=== PATIENT | female | born 1960 | race Caucasian/White ===

== ENCOUNTER → 2017-11-10 | Outpatient (CLI) | payer OTHER ==
[~2017-11-10] MED LIST: ADV250/50 INH; ALBU8.5H12 IH; CITA-156 PO; CODE118S5 PO; FLU20 PO; IBU800 PO; METR250 PO; OMEP-153 PO; PEP PO; PER PO; PRED-1 PO; PRED20TA6 PO; RAN150 PO; TETR-30 PO; [UNRECOGNIZED DRUG - CODE] PO
--- NOTE | 2017-11-10 10:56 | RADIOLOGY IMAGING REPORT ---
FACILITY: [facility] PATIENT NAME: Cony Pierre : 1960 MR: [id number] V: [id number] EXAM DATE: ORDERING PHYSICIAN: KENDRA CARBONE TECHNOLOGIST: Location: [facility] Patient: Cony Pierre : 1960 Visit/Account:[id number] Date of Sevice: 11/10/2017 CHEST PA AND LAT History: Positive TB test FINDINGS: Comparison studies: Comparison study 12/28/2014 Tubes and Lines: None. Lungs and pleura: Interval development of interstitial opacities in the right middle lobe well-visu alized both projections. No pleural effusions seen. Left lung well aerated. There is no evidence o f hilar retraction or scarring in the upper lobes. No definite radiographic findings more specific a nd concerning for tuberculosis Mediastinum: normal. Cardiac silhouette: normal . Osseous structures: Unremarkable for age . IMPRESSION: New right middle lobe infiltrate. Atelectasis versus pneumonia. Report Dictated By: Benny Hancock MD at 11/10/2017 10:49 AM Report E-Signed By: Benny Hancock MD at 11/10/2017 10:52 AM WSN:[id number]
== END ==
LOC: RAD 09:00 → EDSTATUS 13:33
PROVIDERS: ATTEND Nurse Practitioner
DX: R91.8 Other nonspecific abnormal finding of lung field (principal)
CPT/HCPCS: 71046

== ENCOUNTER → 2017-11-17 | Outpatient (REF) | payer OTHER ==
--- NOTE | 2017-11-17 13:53 | RADIOLOGY IMAGING REPORT ---
FACILITY: [facility] [place] PATIENT NAME: Cony Pierre : 1960 MR: [id number] V: [id number] EXAM DATE: ORDERING PHYSICIAN: KENDRA CARBONE TECHNOLOGIST: [place] [facility] [place] [place] Cony [place] : 1960 Visit/Account:[id number] Date of Sevice: 11/17/2017 CHEST W/O CONTRAST History: Abnormal chest x-ray TECHNIQUE: Contiguous axial images were performed through the chest to the level of the adrenal gla nds. No IV contrast was administered. Coronal and sagittal reformatting was also performed. COMPARISON STUDIES: PA and lateral chest November 10, 2017. Lungs / Pleura: There is coarse linear stranding in the right middle lobe and thickening of the inf erior aspect of the both major fissures. There Is additional septal thickening also noted along the inferolateral right middle lobe. There Is a noncalcified pulmonary nodule along the inferior lateral aspect of the right lower lobe me asuring 1 x 1 x 0.5 cm best seen on image 82 of series 3 and sagittal image 18. The lateral aspect inferior left lower lobe there is a 1 x 0.8 x 0.7 cm noncalcified nodule best seen on image 75 series 3 and sagittal image 103. there is mild to moderate central peribronchial thickening bilaterally Mediastinum/nodes: Mediastinal structures not ideally evaluated due to lack of intravenous contrast there are subcentimeter pretracheal and AP window lymph nodes Heart and vessels: There is a small pericardial effusion. Mild calcination occasions are noted in t he coronary arteries. Musculoskeletal / Body wall: There are mild spondylotic changes of the thoracic spine Upper abdomen: There is a 1.2 x 1.1 x 0.8 cm lymph node adjacent to the GE junction IMPRESSION: There are two noncalcified pulmonary nodules one in each lower lobe one measuring 1 x 1 x 0.5 cm and one measuring 1 x 0.8 x 0.7 cm. Fleischner Society recommendations are as follows For nodules this s ize in a low-risk patient (minimal or absent smoking history, no history of malignancy), a 3-6 month follow-up CT is recommended, then consider CT at 18-24 months. In a high risk patient, (smoking or ma lignancy history), a CT at 3-6 months then at 18-24 months is recommended. There is mild to moderate central peribronchial thickening Coarse linear stranding in the right middle lobe may represent scarring versus atelectasis. There is additional septal thickening along the inferolateral right middle lobe which again could be chronic versus an acute infectious/inflammatory process Thickening of the major fissures inferiorly bilaterally Subcentimeter pretracheal and AP window lymph nodes Small pericardial effusion 1.2 x 1.1 x 0.8 cm lymph node adjacent to the GE junction Report Dictated By: Thalia Myers MD at 11/17/2017 1:39 PM Report E-Signed By: Thalia Myers MD at 11/17/2017 1:50 PM WSN:[email or web address]
== END ==
LOC: CT 11-15 13:41
PROVIDERS: ATTEND Nurse Practitioner
DX: R91.1 Solitary pulmonary nodule (principal); R93.8 Abnormal findings on diagnostic imaging of other specified body structures; I31.3 Pericardial effusion (noninflammatory)
CPT/HCPCS: 71250

== ENCOUNTER 2017-12-31 14:19 | Outpatient (RCR) | payer SELFPAY ==
[~2017-12-31] VITALS: Ht 163.8 cm; Wt 78.1 kg
[2017-12-31 14:37] VITALS: BP 118/77
[2017-12-31] MEDS ORDERED: TIO18R INH (14:42)
[2017-12-31] MEDS ORDERED: PARO-243 PO (14:42)
[2017-12-31] MEDS ORDERED: OMEP-137 PO (14:42)
--- NOTE | 2017-12-31 18:45 | ONCOLOGY CONSULTATION ---
EVENT DATE: December 31, 2017 REFERRING PHYSICIAN KEVIN Stephenson REASON FOR CONSULTATION Evaluation and management of growing pulmonary nodules. HISTORY OF PRESENT ILLNESS Patient is a 57-year-old female with past medical history of COPD, and the patient was found to have pulmonary nodules four years ago. She has been seen by her primary care provider, Marta Maurice, who requested a CT scan of the chest done on November 17, 2017, which showed slightly growing pulmonary nodules, one in each lower lobe of the lung. The one on the right lower lobe laterally was 8 x 5 mm four years ago, and currently 1.1 x 0.5 cm. The other one in the lateral aspect of the left lower lobe was 8.5 mm and currently 1 x 0.8 x 0.7 cm. Patient was referred for further evaluation and management. PAST MEDICAL HISTORY 1. Positive PPD with negative chest x-ray. 2. GERD. 3. COPD. 4. Asthma. 5. Pre-diabetic. 6. Hepatitis C positive. 7. Osteoporosis. 8. Skin cancer. PAST SURGICAL HISTORY 1. Right foot surgery. 2. Tubal ligation. 3. Resection of skin cancer. SOCIAL HISTORY Patient is with two children. She works for [employer]. She quit smoking seven years ago after one to one and a half packs a day for 25 years. She has two to three drinks per month. Her last time to use street drugs was in 2000. FAMILY HISTORY Two maternal aunts had breast cancer. CURRENT MEDICATIONS 1. Advair 50/250 two times daily. 2. Albuterol one spray as needed. 3. Spiriva one pill a day. 4. Tramadol 50 mg twice daily. 5. Paxil 20 mg once daily. 6. Hydroxyzine 50 mg two times daily. 7. Omeprazole 20 mg as needed. 8. Trazodone 50 mg as needed. ALLERGIES No known drug allergies. REVIEW OF SYSTEMS CONSTITUTIONAL: No appetite or weight change. No fever, chills or sweating. No recent infection. HEENT: Ears: No tinnitus or hearing problem. Nose: No nasal discharge or epistaxis. Throat: No sore throat or mouth ulcers. Eyes: No diplopia or visual changes. RESPIRATORY: Patient has cough with expectoration, shortness of breath and wheezing from her COPD. No hemoptysis. CARDIOVASCULAR: No chest pain, orthopnea, or paroxysmal nocturnal dyspnea (PND) . No edema. No palpitations. GASTROINTESTINAL: She has occasional nausea. No vomiting. No diarrhea or constipation. No change in bowel movements. No heartburn or swallowing difficulties. No abdominal pain. No jaundice. No hematemesis, melena or rectal bleeding. GENITOURINARY: No hematuria or dysuria. She had rectal bleeding which resolved because of her bleeding hemorrhoids. MUSCULOSKELETAL: No pain in the muscles, joints or bones. NEUROLOGICAL: She has tingling and numbness in the hands. No headaches or convulsions. HEMATOLOGIC/LYMPHATIC: No bleeding or easy bruising. She is weak, tired and fatigued. No enlarged lymph nodes. SKIN: No skin rash or lumps. PSYCHIATRIC: No anxiety or depression. PHYSICAL EXAMINATION GENERAL: Looks stable. Well-developed, well-nourished, and in no acute distress. VITAL SIGNS: Blood pressure 118/77, pulse 61 per minute, respirations 16 per minute, temperature 98, pulse ox 92% on room air. HEENT: Head: Atraumatic. No sinus tenderness to palpation. Eyes: No icterus or conjunctivitis. Mouth and Throat: No oral thrush or mucositis. NECK: Supple. No cervical or supraclavicular lymphadenopathy. LUNGS: Clear to auscultation and percussion bilaterally. HEART: Regular rate and rhythm. No gallops, murmurs, clicks or rubs. ABDOMEN: Soft and lax. No tenderness. No hepatosplenomegaly. No masses. EXTREMITIES: No cyanosis, clubbing or edema. LYMPHATICS: No peripheral lymphadenopathy. NEUROLOGICAL: Conscious, alert and oriented times three. No focal motor or sensory deficits. PSYCHIATRIC: Mood and affect appear normal. SKIN: No skin rash, bruise or purpuric eruption. ASSESSMENT 1. Multiple pulmonary nodules, one on each lung in the lower lobe. Over four years there was an increase in the size by only 0.2 cm. Patient was offered today PET/CT scan and then to decide about biopsy if it comes back positive for those nodules, or repeat CT scan of the chest in four months, or proceed with biopsy of one of those nodules. But patient decided to just wait for another four months and get another PET scan at that time. I am planning to see her in four months with CBC, chem panel and I will repeat her CT chest with intravenous contrast at that time. If the size of those nodules continues to grow then I will proceed with CT-guided biopsy of the nodule which is growing. If the size remains the same then we will continue to monitor. Patient also does not have insurance to recommend a PET scan right now. 2. Chronic obstructive pulmonary disease. 3. History of hepatitis C status post treatment. 4. History of skin cancer status post resection. 5. History of positive PPD with negative chest x-ray. PLAN 1. Continue followup. 2. Patient to return in four months with CT chest with intravenous contrast. 3. Patient to contact us for any new concerns or complaints. MIKED
== END 2018-02-02 13:49 | disposition home or self-care (01) ==
LOC: ONC 14:19
PROVIDERS: ATTEND Internal Medicine Hematology
DX: R91.8 Other nonspecific abnormal finding of lung field (principal); J44.9 Chronic obstructive pulmonary disease, unspecified; Z85.828 Personal history of other malignant neoplasm of skin; Z87.891 Personal history of nicotine dependence; R05 Cough; R53.1 Weakness; R53.83 Other fatigue
CPT/HCPCS: 99202

== ENCOUNTER → 2018-03-08 | Outpatient (REF) ==
[~2018-03-08] MED LIST changes: +DOCU-416 PO; +FLUT1DIS29 IH; +HYDR-4228 PO; +HYDR10TA3 PO; +LORA-629 PO; +OMEP-137 PO; +OXYC-854 PO; +PARO-243 PO; +TIO18R INH; +TRAM-420 PO; +TRAZ-156 PO
--- NOTE | 2018-03-10 10:12 | RADIOLOGY IMAGING REPORT ---
[place] [facility] [place] Cony Pierre : 1960 MR: [id number] V: [id number] EXAM DATE: ORDERING PHYSICIAN: BENSON MESSINA TECHNOLOGIST: Location: [facility] Patient: Cony Pierre : 1960 Visit/Account:[id number] Date of Sevice: 03/08/2018 EXTREMITY NON-VASCULAR RIGHT INDICATION: Red lump, right upper extremity, on Augmentin COMPARISON: None available FINDINGS: No mass or fluid collection identified in the area of interest. There is an ovoid echoge lela 1.8 x 1.6 cm region in the area of interest which may represent a benign lipoma or prominence of subcutaneous fat. Additionally there is a small patch of subcutaneous edema and less likely a fluid collection measuring 9 mm. IMPRESSION: 1. Benign 1.8 cm lipoma versus benign prominence of subcutaneous fat in the area of interest. 2. Additional ill-defined subcutaneous edema versus less likely an abscess in the area of interest m easures up to 9 mm. Short-term ultrasound follow-up may be warranted to ensure resolution of this fi nding given history. MR without and with contrast could be utilized for further characterization as needed if there is hig h concern for abscess in this area. Report Dictated By: Sanya Vera MD at 03/10/2018 9:50 AM Report E-Signed By: Sanya Vera MD at 03/10/2018 10:08 AM WSN:[email or web address]
== END ==
LOC: US 01:10 → EDSTATUS 08:02 → US 08:06 → EDSTATUS 08:06
PROVIDERS: ATTEND Nurse Practitioner
DX: L02.413 Cutaneous abscess of right upper limb (principal)
CPT/HCPCS: 76881

== ENCOUNTER 2018-03-10 01:17 | Day surgery (SDC) | payer SELFPAY ==
[~2018-03-10] VITALS: Ht 165.1 cm; Wt 75.7 kg
[~2018-03-10 01:17] MED LIST changes: -DOCU-416 PO; -OXYC-854 PO
[2018-03-10] MEDS ORDERED: ROPIVACAINE 0.5% 20 ML VIAL ONE (09:29)
[2018-03-10] MEDS ORDERED: fentaNYL CITR 100 MCG/2 ML AMP ONE ×3 (10:06→12:04)
[2018-03-10] MEDS ORDERED: LIDOCAINE 2% IV 100 MG/5ML SYR ONE (10:07)
[2018-03-10] MEDS ORDERED: PROPOFOL EMUL(*) 10MG/ML 20 ML 20 ML ONE (10:07)
[2018-03-10] MEDS ORDERED: FAMOTIDINE 20 MG/50 ML PREMIX IVPB ONE (10:15)
[2018-03-10] MEDS ORDERED: LIDOCAINE/SOD BICARB 8.4% SYR ID ONE ×2 (10:20→10:30)
[2018-03-10 10:22] VITALS: BP 123/76
[2018-03-10] MEDS ORDERED: AMPICILLIN/SULBACT (*) 3 GM VL 3 GM in NS(*) 0.9% 100 ML BAG 100 ML IVPB ONE (10:30)
[2018-03-10] MEDS ORDERED: NORMOSOL R SOLN(*) 1000 ML BAG 1,000 ML IV PRN (10:30)
[2018-03-10] MEDS ORDERED: MIDAZOLAM 2 MG/2 ML VIAL IVP PRN (10:30)
[2018-03-10] MEDS ORDERED: BACITRACIN OINT 15 GM TUBE TP ONE (11:26)
--- NOTE | 2018-03-10 11:27 | EKG ---
[place] [facility] [place] NAME: ANGIE CORTEZ : [id number] MR: [id number] V: [id number] EXAM DATE: ORDERING PHYSICIAN: CLAUDINE SOLOMON TECHNOLOGIST: APPLE Guadalupe Reason : PRE-OP Blood Pressure : / mmHG Vent. Rate : 064 BPM Atrial Rate : 064 BPM P-R Int : 144 ms QRS Dur : 078 ms QT Int : 440 ms P-R-T Axes : 040 026 042 degrees QTc Int : 453 ms Normal sinus rhythm Low voltage QRS No ST-T abnormalities When compared with ECG of 28-JAN-2016 09:14, No significant change was found Confirmed by TATIANNA SEYMOUR ([id number]) on 03/10/2018 4:45:39 PM Referred By: SIDDHARTH Confirmed By:TATIANNA SEYMOUR
[2018-03-10] MEDS ORDERED: DOCU-416 PO (11:44)
[2018-03-10] MEDS ORDERED: OXYC-854 PO (11:44)
--- NOTE | 2018-03-10 11:46 | Short(Outpt) Discharge Summary ---
Discharge Summary Reason for Hosp/Final Diag: (1) Nodule, subcutaneous Status: Chronic Hospital Course & Plan: Right antecubetal nodule removed without problems. Departure Discharge to: Home, Self Care Discharge Instructions Home Meds Active Scripts Docusate Sodium (COLACE) 100 Mg Capsule, 1 CAP PO BID, #30 CAP 0 Refills TAKE WITH A FULL GLASS OF WATER Prov:BENSON MESSINA MD 03/10/18 Oxycodone Hcl/Acet 5/325 Mg (ENDOCET 5-325 TABLET) 1 Each Tablet, 1 TAB PO Q4H Y for PAIN, #20 TAB 0 Refills Prov:BENSON MESSINA MD 03/10/18 Reported Medications Tramadol Hcl (TRAMADOL HCL) 50 Mg Tablet, 50 MG PO BID, TAB 03/08/18 Fluticasone/Salmeterol (ADVAIR 500-50 DISKUS) 1 Each Disk.w.dev, 1 EACH IH QDAY 03/08/18 Hydroxyzine Hcl (HYDROXYZINE HCL) 50 Mg Tablet, 50 MG PO PRN Y for ANXIETY 03/08/18 Trazodone Hcl (TRAZODONE HCL) 50 Mg Tablet, 50 MG PO QHS Y for prn 03/08/18 Loratadine (LORATADINE) 10 Mg Tablet, 10 MG PO QDAY 03/08/18 Omeprazole (OMEPRAZOLE) 20 Mg Tablet.dr, 20 MG PO PRN, TAB 12/31/17 Paroxetine Hcl (PAXIL) 20 Mg Tablet, 20 MG PO QDAY, TAB 12/31/17 Tiotropium [place] (SPIRIVA) 18 Mcg/Cap Inh, 18 MCG INH DAILY, INH 12/31/17 Ibuprofen (Motrin) 800 Mg Tab, PO PRN 03/31/12 Albuterol Sulfate (Albuterol Sulfate Hfa) 8.5 Gm Hfa.aer.ad, 8.5 GM IH, 0 Refills TAKE ONE TO TWO PUFFS FOUR TIMES DAILY NEEDED FOR SHORTNESS OF BREATH 08/13/11 Discontinued Reported Medications Hydroxyzine Hcl (HYDROXYZINE HCL) Unknown Strength Tablet, PO QDAY 03/08/18 Tramadol Hcl (ULTRAM ER (PT OWN)) 100 Mg Tabcr, PO DAILY PRN 03/31/12 Salmeterol Xinaf/Fluticasone (Advair 250/50 Diskus) 250 Mcg/50 Mcg Inh, 1 PUFF INH QDAY, 0 Refills 1 PUFF TWICE DAILY 08/13/11 Follow up Referrals: General Surgery - 03/28/18 @ Surgery, General with Benson Messina Md You have a follow up appointment scheduled with Dr. Messina on 03/28/18, at 2:45pm. Diet: Regular Activity: As Tolerated Special Instructions: You may remove the entire dressing on 03/12/18, then you can shower. After showering, leave the incision open to air. Don't immerse the incision for 2 weeks. BENSON MESSINA MD Mar 10, 2018 11:46
--- NOTE | 2018-03-10 11:55 | Post Operative Progress Note ---
Post Operative Progress Note Date: Mar 10, 2018 Time: 11:47 Surgeon: Edd Dictation number: [id number] Anesthesia: LMA by Dr. Salinas Pre-Op Diagnosis: Right antecubetal nodule Post-Op Diagnosis: REGGIE Findings: C/W dx Procedure(s): Excision of right antecubetal nodule Specimen Removed:(May be N/A): Right antecubetal nodule Complications: None Fluids: See anesthesia record Estimated Blood Loss: Minimal Date OP Note Dictated: Mar 10, 2018 Time OP Note Dictated: 11:48 BENSON MESSINA MD Mar 10, 2018 11:55
[2018-03-10 12:29] VITALS: BP 111/61
[2018-03-10] MEDS ORDERED: APAP/HYDROCODONE 325/5 TAB PO ONE (12:40)
[2018-03-10 12:48] VITALS: BP 116/79
[2018-03-10 12:55] VITALS: BP 110/65
[2018-03-10 12:58] VITALS: BP 114/79
[2018-03-10] MEDS ORDERED: DEXAMETHASONE SOD 4 MG/ML VIAL ONE (13:04)
[2018-03-10] MEDS ORDERED: ONDANSETRON 4 MG/2 ML VIAL ONE (13:05)
--- NOTE | 2018-03-10 14:36 | OPERATIVE REPORT 1 ---
EVENT DATE: March 10, 2018 SURGEON: Ruslan Puga M.D. ANESTHESIOLOGIST: Dr. Salinas ANESTHESIA: LMA PREOPERATIVE DIAGNOSIS: Right antecubital fossa subcutaneous nodule. POSTOPERATIVE DIAGNOSIS: Right antecubital fossa subcutaneous nodule. PROCEDURE PERFORMED: Excision of a right antecubital fossa nodule. ESTIMATED BLOOD LOSS: Minimal. COMPLICATIONS: None. CONDITION: Stable INDICATIONS: This is a 58 year old female who has a previous history of chronic meth use but had apparently been abstinent for about 7 years and then visited her daughter and apparently they used meth together but she admits that she probably missed the vein when she injected and ended up with a painful nodule. She would like to have the nodule removed. She reports being abstinent from meth at this time. DESCRIPTION OF PROCEDURE: The patient was brought to the operating room and placed upon the operating table. LMA anesthesia was administered and her right arm was prepped and draped in sterile fashion. A time out was completed and I marked the skin over the nodule. This was right on the antecubital fossa right in joint crease and so I made an S shaped incision over the joint crease including an ellipse around the nodule and anesthetized the skin in this area with 0.5% Ropivacaine plain. I made an incision right where I marked the skin and then dissected through the dermis and into the subcutaneous tissues. I dissected around the nodule and then passed it off the field. The wound remained hemostatic with electrocautery and irrigated and dried. I closed the incision with interrupted 3/0 Nylon sutures. The skin was cleaned, dried, and Bacitracin was applied to the incision followed by sterile 4x4 gauze and her arm was wrapped in a Coban. She was awakened, LMA removed. She was transported to the recovery room in stable condition having tolerated the procedure without any apparent problems. PAVAN
== END 2018-03-10 12:29 | disposition home or self-care (01) ==
LOC: OR 01:17
PROVIDERS: ATTEND Surgery
DX: R22.31 Localized swelling, mass and lump, right upper limb (principal); J44.9 Chronic obstructive pulmonary disease, unspecified
CPT/HCPCS: 24075; 36415; 88305; 93005; J0295; J2001; J2704; J2795; J3010; J3490; J7050; 82040; 82247; 82310; 82374; 82435; 82565; 82947; 84075; 84132; 84155; 84295; 84450; 84460; 84520; J1100; J2405

== ENCOUNTER → 2018-05-02 | Outpatient (REF) ==
[~2018-05-02] MED LIST changes: +DOCU-416 PO; +IOPAMIDOL 76% 75 ML INFUS BTL 75 ML ONE; +OXYC-854 PO; -TRAZ-156 PO; +TRAZ50TA34 PO
--- NOTE | 2018-05-02 13:13 | RADIOLOGY IMAGING REPORT ---
FACILITY: [facility] [place] PATIENT NAME: Cony Pierre : 1960 MR: [id number] V: [id number] EXAM DATE: ORDERING PHYSICIAN: KENDRA CARBONE TECHNOLOGIST: Location: [facility] [place] Patient: Cony Pierre : 1960 Visit/Account:[id number] Date of Sevice: 05/02/2018 CT chest with contrast HISTORY: Pulmonary nodules TECHNIQUE: CT chest with intravenous contrast. Contiguous helical images was performed from the lung apices to below the diaphragm. One of the following dose optimization techniques was utilized in the performance of this exam: Autom ated exposure control; adjustment of the mA and/or kV according to the patient's size; or use of an i terative reconstruction technique. Specific details can be referenced in the facility's radiology C T exam operational policy. CONTRAST: 75 cc of Isovue-370 COMPARISON: CT scan 11/20/2013 11/17/2017. FINDINGS: Heart/vessels: Trace pericardial effusion is unchanged. Mediastinum: There is a small hiatal hernia. Lymph nodes: Negative. Lungs/pleura: No significant interval change from prior examination. The consolidation and intersti tial prominence in the lingula and right middle lobe is stable. 7 x 5 mm right lower lobe pleural-based nodule (series 4, image 188) is unchanged dating back to 2013 . Pleural-based left lower lobe nodule (series 4, image 267) measures 7 x 5 mm, previously 10 x 6 mm. Right lower lobe pleural-based nodule (series 4, image 36) seen measures 8 x 4 mm, previously 8 x 5 m m. No new or enlarging nodules. There is bronchial thickening. Visualized upper abdomen: Negative. Bones/soft tissues: Mild degenerative changes are noted. IMPRESSION: 1. Stable small pulmonary nodules not significantly changed dating back to 2013. 2. Stable mild consolidation and interstitial thickening in the right middle lobe and left lingula c ould represent scarring or atelectasis. Report Dictated By: Isrrael Varma MD at 05/02/2018 12:54 PM Report E-Signed By: Isrrael Varma MD at 05/02/2018 1:08 PM WSN:[email or web address]
== END ==
LOC: CT 02:48
PROVIDERS: ATTEND Nurse Practitioner
DX: R91.1 Solitary pulmonary nodule (principal)
CPT/HCPCS: 71260; Q9967

== ENCOUNTER 2018-05-05 14:26 | Outpatient (RCR) | payer SELFPAY ==
[~2018-05-05 14:26] MED LIST changes: -IOPAMIDOL 76% 75 ML INFUS BTL 75 ML ONE
[2018-05-05 14:54] VITALS: BP 107/64
[2018-05-05] MEDS ORDERED: CETI-176 PO (15:01)
--- NOTE | 2018-05-05 16:39 | ONCOLOGY FOLLOW UP NOTE ---
EVENT DATE: May 05, 2018 DIAGNOSES 1. Multiple pulmonary nodules. 2. Chronic obstructive pulmonary disease. 3. History of hepatitis C status post treatment. 4. History of skin cancer status post resection. 5. History of positive PPD with negative chest x-ray. CHIEF COMPLAINT Patient is here today for followup of her pulmonary nodules. HEMATOLOGY/ONCOLOGY HISTORY Patient is a 57-year-old female with past medical history of COPD, and the patient was found to have pulmonary nodules four years ago. She has been seen by her primary care provider, Marta Maurice, who requested a CT scan of the chest done on November 17, 2017, which showed slightly growing pulmonary nodules, one in each lower lobe of the lung. The one on the right lower lobe laterally was 8 x 5 mm four years ago, and currently 1.1 x 0.5 cm. The other one in the lateral aspect of the left lower lobe was 8.5 mm and currently 1 x 0.8 x 0.7 cm. Patient was referred for further evaluation and management. HISTORY OF PRESENT ILLNESS Patient is here today for followup of her pulmonary nodules. She is complaining of cough with expectoration, shortness of breath and wheezing, but other than that she does not have any other complaints. PAST MEDICAL HISTORY 1. Positive PPD with negative chest x-ray. 2. GERD. 3. COPD. 4. Asthma. 5. Pre-diabetic. 6. Hepatitis C positive. 7. Osteoporosis. 8. Skin cancer. PAST SURGICAL HISTORY 1. Right foot surgery. 2. Tubal ligation. 3. Resection of skin cancer. SOCIAL HISTORY Patient is with two children. She works for [employer]. She quit smoking seven years ago after one to one and a half packs a day for 25 years. She has two to three drinks per month. Her last time to use street drugs was in 2000. FAMILY HISTORY Two maternal aunts had breast cancer. CURRENT MEDICATIONS 1. Advair 50/250 two times daily. 2. Albuterol one spray as needed. 3. Spiriva one pill a day. 4. Tramadol 50 mg twice daily. 5. Paxil 20 mg once daily. 6. Hydroxyzine 50 mg two times daily. 7. Omeprazole 20 mg as needed. 8. Trazodone 50 mg as needed. ALLERGIES No known drug allergies. REVIEW OF SYSTEMS CONSTITUTIONAL: No appetite or weight change. No fever, chills or sweating. No recent infection. HEENT: Ears: No tinnitus or hearing problem. Nose: No nasal discharge or epistaxis. Throat: No sore throat or mouth ulcers. Eyes: No diplopia or visual changes. RESPIRATORY: Patient has cough with expectoration, shortness of breath and wheezing. No hemoptysis. CARDIOVASCULAR: No chest pain, orthopnea, or paroxysmal nocturnal dyspnea (PND). No edema. No palpitations. GASTROINTESTINAL: She has occasional nausea. No vomiting. No diarrhea or constipation. No change in bowel movements. No heartburn or swallowing difficulties. No abdominal pain. No jaundice. No hematemesis, melena or rectal bleeding. GENITOURINARY: No hematuria or dysuria. She had rectal bleeding which resolved because of her bleeding hemorrhoids. MUSCULOSKELETAL: No pain in the muscles, joints or bones. NEUROLOGICAL: She has tingling and numbness in the hands. No headaches or convulsions. HEMATOLOGIC/LYMPHATIC: No bleeding or easy bruising. She is weak, tired and fatigued. No enlarged lymph nodes. SKIN: No skin rash or lumps. PSYCHIATRIC: No anxiety or depression. PHYSICAL EXAMINATION GENERAL: Looks stable. Well-developed, well-nourished, and in no acute distress. VITAL SIGNS: Blood pressure 107/64, pulse 72 per minute, respirations 17 per minute, temperature 97.2, pulse ox 90% on room air. HEENT: Head: Atraumatic. No sinus tenderness to palpation. Eyes: No icterus or conjunctivitis. Mouth and Throat: No oral thrush or mucositis. NECK: Supple. No cervical or supraclavicular lymphadenopathy. LUNGS: Clear to auscultation and percussion bilaterally. HEART: Regular rate and rhythm. No gallops, murmurs, clicks or rubs. ABDOMEN: Soft and lax. No tenderness. No hepatosplenomegaly. No masses. EXTREMITIES: No cyanosis, clubbing or edema. LYMPHATICS: No peripheral lymphadenopathy. NEUROLOGICAL: Conscious, alert and oriented times three. No focal motor or sensory deficits. PSYCHIATRIC: Mood and affect appear normal. SKIN: No skin rash, bruise or purpuric eruption. DIAGNOSTIC DATA CT chest done on May 02, 2018 showed stable small pulmonary nodules not significantly changed, dating back to 2013. CBC showed white count 5.1, hemoglobin 14.2, hematocrit 42.8, platelets 303,000. Chem panel totally normal except chloride 108. Other parameters are normal. ASSESSMENT 1. Multiple pulmonary nodules on each lung in the lower lobe. Over four years there was only an increase in the size by only 0.2 cm. Patient offered PET/CT scan or repeat CT scan of the chest, and the patient decided to wait for four months to check her CT chest again. Her current CT chest on May 02, 2018 showed stable pulmonary nodules since 2014. Given this information I am planning to refer the patient back to her primary care provider for followup, and I will be more than happy to see her in the future for any reason. I explained that to the patient. She is agreeable with the plan of management. 2. Chronic obstructive pulmonary disease. 3. History of hepatitis C status post treatment. 4. History of skin cancer status post resection. 5. History of positive PPD with negative chest x-ray. PLAN 1. Patient to continue followup with her primary care provider. . 2. Patient to return on p.r.n. basis. 3. Patient to contact us for any new concern or complaints. PAVAN
== END 2018-07-06 10:01 | disposition home or self-care (01) ==
LOC: ONC 14:26
PROVIDERS: ATTEND Internal Medicine Hematology
DX: R91.8 Other nonspecific abnormal finding of lung field (principal); J44.9 Chronic obstructive pulmonary disease, unspecified; Z85.828 Personal history of other malignant neoplasm of skin; Z87.891 Personal history of nicotine dependence; R05 Cough; R53.1 Weakness; R53.83 Other fatigue
CPT/HCPCS: 99212

== ENCOUNTER → 2018-06-15 | Outpatient (REF) ==
[~2018-06-15] MED LIST changes: +CETI-176 PO
--- NOTE | 2018-06-15 09:39 | RADIOLOGY IMAGING REPORT ---
FACILITY: [facility] - [place] PATIENT NAME: Cony Pierre : 1960 MR: [id number] V: [id number] EXAM DATE: ORDERING PHYSICIAN: KENDRA CARBONE TECHNOLOGIST: Location: Patient: Cony Pirere : 1960 Visit/Account:[id number] Date of Sevice: 06/15/2018 DEXA Scan Clinical history: Osteopenia. Comparison: DEXA scan from 2116. LUMBAR SPINE: The bone mineral density (BMD) measured from L1-L4 correlates with a Z-score of -1.3 and a T-score of -2.1 which is osteopenia as defined by the World Health Organization. The corresponding risk of fra cture in the lumbar spine is 4-6 times increased compared with a young adult reference population. T his value has decrease by 1.6 % since the prior study. More than 5% change is considered significant . HIP: Bone mineral density (BMD) measured in the LEFT total hip region correlates with a Z-score right is 1 .1 and a T-score of -1.7 which is osteopenia as defined by the World Health Organization. The corres ponding risk of fracture in the hip is 3-4 times increased compared to a young adult reference popula tion. This value has decreased by 6.8 % since the prior study. More than 5% change is considered sig nificant. T score left femoral neck -2.2 Bone mineral density (BMD) measured in the Femoral Neck region measures 0.738 g/cm?. IMPRESSION: 1. Lumbar spine: Osteopenia. There has been 1.6% decrease in the bone mineral density since the pre vious exam. 2. Left Total Hip: Osteopenia. There has been 6.8% decrease in the bone mineral density since the p revious exam. 3. Femoral Neck: Bone Mineral Density is 0.738 g/cm? The next DEXA scan of this patient should include the following sites: L1-L4 and the left hip. FRAX? WHO Fracture Risk Assessment Tool link: <http://www.shef.ac.uk/FRAX/tool.jsp?locationValue=9> PLEASE NOTE: 1) The World Health Organization defines low BMD as follows: T-score Normal > -1 Osteopenia < -1 and > -2.5 Osteoporosis < -2.5 without fractures Established osteoporosis < -2.5 with fractures 2) In general, you may wish to consider: Diagnosis Treatment Follow-up DEXA Normal BMD Prevention 2-3 years Osteopenia Prevention/therapy 1-2 years Osteoporosis Therapy Yearly 3) Fracture risk estimated from the T-score is more accurate for vertebral fractures (often spontane ous) than for hip fractures. Report Dictated By: Thalia Myers MD at 06/15/2018 9:33 AM Report E-Signed By: Thalia Myers MD at 06/15/2018 9:35 AM WSN:[email or web address]
== END ==
LOC: RAD 06-02 00:41
PROVIDERS: ATTEND Nurse Practitioner
DX: M85.80 Other specified disorders of bone density and structure, unspecified site (principal)
CPT/HCPCS: 77080

== ENCOUNTER → 2018-07-08 | Outpatient (REF) | LOC: RESP 07:17 → EDSTATUS 13:00 | PROVIDERS: ATTEND Nurse Practitioner | DX: J98.4 Other disorders of lung (principal) | CPT/HCPCS: 94060; 94726; 94729 ==

== ENCOUNTER 2018-09-22 09:59 | Inpatient (IN) | payer SELFPAY ==
[~2018-09-22] VITALS: Ht 162.6 cm; Wt 81.6 kg
[2018-09-22] MEDS ORDERED: ALBUTEROL/IPRATROPIUM 3 ML NEB NEB ONE (10:05)
[2018-09-22] MEDS ORDERED: methylPREDNIS SUCC 125 MG/2ML IVP ONE (10:10)
--- NOTE | 2018-09-22 10:41 | EKG ---
FACILITY: [facility] - [place] PATIENT NAME: ANGIE CORTEZ : [id number] MR: [id number] V: [id number] EXAM DATE: ORDERING PHYSICIAN: ALVIN LAST TECHNOLOGIST: Test Reason : SOB Blood Pressure : / mmHG Vent. Rate : 100 BPM Atrial Rate : 100 BPM P-R Int : 146 ms QRS Dur : 076 ms QT Int : 382 ms P-R-T Axes : 066 072 069 degrees QTc Int : 492 ms Sinus rhythm Nonspecific ST abnormality Prolonged QT Abnormal ECG Poor baseline - repeat if needed Confirmed by LUZ VILLALOBOS ([id number]) on 09/22/2018 4:36:11 PM Referred By: Confirmed By:LUZ VILLALOBOS
[2018-09-22] MEDS ORDERED: IPRATROPIUM 0.5MG/2.5ML NEB NEB ONE (10:50)
[2018-09-22] MEDS ORDERED: ALBUTEROL 2.5 MG/0.5ML ER ONLY NEB ONE (10:50)
[2018-09-22 10:53] LABS: PLATELET COUNT, AUTOMATED 279 K/uL (150-450)
--- NOTE | 2018-09-22 11:02 | ER Report ---
History and Physical Time Seen By MD: 10:30 Hx. of Stated Complaint: PT HAS BEEN SHORT OF BREATH FOR A WEEK SINCE GETTING SICK. HPI/ROS CHIEF COMPLAINT: Severe shortness of breath. HISTORY OF PRESENT ILLNESS: Patient is a 58-year-old female with known history of COPD and asthma presents to the emergency department for evaluation of severe shortness of breath that is progressively worsened over the last week. The patie nt states that she's been using her rescue inhaler every few hours she also states that she does have a nebulizer machine at home but lacks the medication. Patient reported upper respiratory symptoms and some cough progressing over the week. Patient is a former smoker quitting 7 years ago. Review the electronic medical record she was also seen in consultation with oncology for some enlarging pulmonary nodules which were followed by imaging she was discharged from oncology service after the nodules seemed to stabilize in size and concerns for malignancy were ruled out. REVIEW OF SYSTEMS: Constitutional: No fever, no chills. Eyes: No discharge. ENT: No sore throat. Cardiovascular: No chest pain, no palpitations. Respiratory: Shortness of breath, dry cough Gastrointestinal: No abdominal pain, no vomiting. Genitourinary: No hematuria. Musculoskeletal: No back pain. Skin: No rashes. Neurological: No headache. Allergies: Coded Allergies: No Known Drug Allergies (Verified , 04/10/14) Home Meds Reported Medications Cetirizine Hcl (ZYRTEC) 10 Mg Tablet, 10 MG PO QDAY, TAB 05/05/18 Tramadol Hcl (TRAMADOL HCL) 50 Mg Tablet, 50 MG PO BID, TAB 03/08/18 Fluticasone/Salmeterol (ADVAIR 500-50 DISKUS) 1 Each Disk.w.dev, 1 EACH IH QDAY 03/08/18 Hydroxyzine Hcl (HYDROXYZINE HCL) 50 Mg Tablet, 50 MG PO PRN PRN for ANXIETY 03/08/18 Trazodone Hcl (TRAZODONE HCL) 50 Mg Tablet, 50 MG PO QHS PRN for prn 03/08/18 Omeprazole (OMEPRAZOLE) 20 Mg Tablet.dr, 20 MG PO PRN, TAB 12/31/17 Paroxetine Hcl (PAXIL) 20 Mg Tablet, 20 MG PO QDAY, TAB 12/31/17 Albuterol Sulfate (Albuterol Sulfate Hfa) 8.5 Gm Hfa.aer.ad, 8.5 GM IH, 0 Refills TAKE ONE TO TWO PUFFS FOUR TIMES DAILY NEEDED FOR SHORTNESS OF BREATH 08/13/11 Past Medical/Surgical History Past medical history for positive PPD with negative chest x-ray, gastric esophageal reflux disease, COPD, asthma, hepatitis C positive, osteoporosis, resection of skin cancer, tubal ligation, right foot surgery. Hx Smoking: No (quit 2010, smoked 30 yrs, 1 pack every few days ) Smoking Status: Former Smoker Hx Substance Use Disorder: No (IV METH UNTIL 2007) Hx Alcohol Use: Yes (RARE) Constitutional Vital Sign - Last 24 Hours 09/22/18 09/22/18 09/22/18 09/22/18 10:00 10:07 10:07 10:15 Temp 98.3 Pulse 95 94 102 Resp 26 20 20 Pulse Ox 94 95 O2 Delivery Nasal Cannula Oxy Mask O2 Flow Rate 6.0 09/22/18 09/22/18 09/22/18 11:07 11:07 11:52 Pulse 90 104 Resp 20 20 Pulse Ox 97 O2 Delivery Oxy Mask O2 Flow Rate 6.0 Physical Exam General/Constitutional: Patient is awake, alert, severe respiratory distress and increased work of breathing. Patient is requiring oxygen ; patient only able to talk in 2-3 word sentences. Head: Normocephalic and atraumatic. Eyes: Conjunctival clear, Pupils are equal and reactive to light. Extraocular muscles are intact and symmetrical. Sclera are clear and anicteric. Ears:External canals are clear. Tympanic membranes are clear with normal landmarks and light reflex. Nares: No rhinorrhea or bleeding. Turbinates are pink and moist. Oropharyngeal: Mucous membranes are moist. There is no pharyngeal erythema or exudate. There are no palatal petechiae. Uvula is midline and symmetrical. Neck: Supple, no adenopathy. Cardiovascular: Heart is regular rate and rhythm without audible murmurs, rubs or gallops. Pulmonary: Lungs Have decreased breath sounds bilaterally with is severely prolonged expiratory phase and wheezes. She is using accessory muscles of respiration. Abdomen: Soft, nontender, no guarding or peritoneal signs. Extremities: No gross deformities, No peripheral cyanosis. Able to move all 4 extremities. Neuro: Alert and oriented X3, Skin: No rashes, skin is warm dry and well perfused. Medical Decision Making Data Points Result Diagram: 09/22/18 1030 09/22/18 1109 Laboratory Hematology Test 09/22/18 10:30 09/22/18 11:00 09/22/18 11:09 Red Blood Count 5.41 M/uL (4.17-5.56) Mean Corpuscular Volume 85.0 fL (80.0-96.0) Mean Corpuscular Hemoglobin 29.2 pg (26.0-33.0) Mean Corpuscular Hemoglobin Concent 34.4 g/dL (32.0-36.0) Red Cell Distribution Width 13.9 % (11.5-14.5) Mean Platelet Volume 8.9 fL (7.2-11.1) Neutrophils (%) (Auto) 74.8 % (39.4-72.5) Lymphocytes (%) (Auto) 15.0 % (17.6-49.6) Monocytes (%) (Auto) 6.5 % (4.1-12.4) Eosinophils (%) (Auto) 2.6 % (0.4-6.7) Basophils (%) (Auto) 1.1 % (0.3-1.4) Nucleated RBC Relative Count (auto) 0.0 /100WBC Neutrophils # (Auto) 7.6 K/uL (2.0-7.4) Lymphocytes # (Auto) 1.5 K/uL (1.3-3.6) Monocytes # (Auto) 0.7 K/uL (0.3-1.0) Eosinophils # (Auto) 0.3 K/uL (0.0-0.5) Basophils # (Auto) 0.1 K/uL (0.0-0.1) Nucleated RBC Absolute Count (auto) 0.00 K/uL Influenza Virus Type A (PCR) Negative (NEGATIVE) Influenza Virus Type B (PCR) Negative (NEGATIVE) Sodium Level 143 mmol/L (137-145) Potassium Level 4.2 mmol/L (3.5-5.0) Chloride Level 110 mmol/L (98-107) Carbon Dioxide Level 22 mmol/L (22-31) Blood Urea Nitrogen 13 mg/dl (7-18) Creatinine 1.30 mg/dl (0.52-1.04) Glomerular Filtration Rate Calc 41.9 Random Glucose 119 mg/dl (75-110) Calcium Level 9.1 mg/dl (8.4-10.2) Total Bilirubin 0.6 mg/dl (0.2-1.3) Aspartate Amino Transf (AST/SGOT) 34 U/L (0-35) Alanine Aminotransferase (ALT/SGPT) 39 U/L (0-56) Alkaline Phosphatase 75 U/L (0-126) Total Protein 7.7 g/dl (6.3-8.2) Albumin 4.3 g/dl (3.5-5.0) Chemistry Test 09/22/18 10:30 09/22/18 11:00 09/22/18 11:09 White Blood Count 10.2 k/uL (4.5-11.0) Red Blood Count 5.41 M/uL (4.17-5.56) Hemoglobin 15.8 g/dL (12.0-16.0) Hematocrit 46.0 % (34.0-47.0) Mean Corpuscular Volume 85.0 fL (80.0-96.0) Mean Corpuscular Hemoglobin 29.2 pg (26.0-33.0) Mean Corpuscular Hemoglobin Concent 34.4 g/dL (32.0-36.0) Red Cell Distribution Width 13.9 % (11.5-14.5) Platelet Count 279 K/uL (150-450) Mean Platelet Volume 8.9 fL (7.2-11.1) Neutrophils (%) (Auto) 74.8 % (39.4-72.5) Lymphocytes (%) (Auto) 15.0 % (17.6-49.6) Monocytes (%) (Auto) 6.5 % (4.1-12.4) Eosinophils (%) (Auto) 2.6 % (0.4-6.7) Basophils (%) (Auto) 1.1 % (0.3-1.4) Nucleated RBC Relative Count (auto) 0.0 /100WBC Neutrophils # (Auto) 7.6 K/uL (2.0-7.4) Lymphocytes # (Auto) 1.5 K/uL (1.3-3.6) Monocytes # (Auto) 0.7 K/uL (0.3-1.0) Eosinophils # (Auto) 0.3 K/uL (0.0-0.5) Basophils # (Auto) 0.1 K/uL (0.0-0.1) Nucleated RBC Absolute Count (auto) 0.00 K/uL Influenza Virus Type A (PCR) Negative (NEGATIVE) Influenza Virus Type B (PCR) Negative (NEGATIVE) Glomerular Filtration Rate Calc 41.9 Calcium Level 9.1 mg/dl (8.4-10.2) Total Bilirubin 0.6 mg/dl (0.2-1.3) Aspartate Amino Transf (AST/SGOT) 34 U/L (0-35) Alanine Aminotransferase (ALT/SGPT) 39 U/L (0-56) Alkaline Phosphatase 75 U/L (0-126) Total Protein 7.7 g/dl (6.3-8.2) Albumin 4.3 g/dl (3.5-5.0) EKG/Imaging EKG Interpretation EKG shows sinus rhythm with a nonspecific ST segment abdomen malady with a ventricular rate of approximately 100 bpm. Imaging FACILITY: [facility] PATIENT NAME: Cony Pierre : 1960 MR: [id number] V: [id number] EXAM DATE: ORDERING PHYSICIAN: ALVIN LAST TECHNOLOGIST: Location: [facility] [place] Patient: Cony Pierre : 1960 Visit/Account:[id number] Date of Sevice: 09/22/2018 Exam type: CHEST SINGLE AP History: Not feeling well for 5 to 6 days, shortness of breath, cough, COPD, asthma Comparison: November 10, 2017. Findings: There is a small amount scarring in the right middle lobe. No evidence of acute pulmonary consolidation or pleural effusions. The cardiac silhouette appears normal. The trachea is in midline. IMPRESSION: 1. Small amount of scarring in the right middle lobe remains stable. No evidence of acute pulmonary consolidation Report Dictated By: Thalia Myers MD at 09/22/2018 10:59 AM Report E-Signed By: Thalia Myers MD at 09/22/2018 11:00 AM WSN:[email or web address] ED Course/Re-evaluation Clinical Indication for ER IV: IV Access ED Course 09/22/2018 11:02:04 am patient with severe asthma exacerbation. Plan at this time will be DuoNeb treatment we will perform an infectious workup including influenza screen blood cultures and chest x-ray. We will also give IV Solu- Medrol. Patient's severity of asthma is such that I feel that she will require admission. Decision to Disposition Date: Sep 22, 2018 Decision to Disposition Time: 11:58 Depart Departure Latest Vital Signs Vital Signs Date Time Temp Pulse Resp B/P (MAP) Pulse Ox O2 Delivery O2 Flow Rate FiO2 09/22/18 11:52 104 20 09/22/18 11:07 97 Oxy Mask 6.0 09/22/18 10:00 98.3 Impression: Primary Impression: Asthma exacerbation Condition: Improved Disposition: Admitted from ER (to [facility]) Referrals: KENDRA CARBONE (PCP) Problem Qualifiers Primary Impression: Asthma exacerbation Asthma severity: severe Asthma persistence: persistent Qualified Codes: J45.51 - Severe persistent asthma with (acute) exacerbation ALVIN LAST MD Sep 22, 2018 11:02
--- NOTE | 2018-09-22 11:05 | RADIOLOGY IMAGING REPORT ---
FACILITY: [facility] PATIENT NAME: Cony Pierre : 1960 MR: [id number] V: [id number] EXAM DATE: ORDERING PHYSICIAN: ALVIN LAST TECHNOLOGIST: [place] [facility] [place]y [place] : 1960 Visit/Account:[id number] Date of Sevice: 09/22/2018 Exam type: CHEST SINGLE AP History: Not feeling well for 5 to 6 days, shortness of breath, cough, COPD, asthma Comparison: November 10, 2017. Findings: There is a small amount scarring in the right middle lobe. No evidence of acute pulmonary consolidat ion or pleural effusions. The cardiac silhouette appears normal. The trachea is in midline. IMPRESSION: 1. Small amount of scarring in the right middle lobe remains stable. No evidence of acute pulmonary consolidation Report Dictated By: Thalia Myers MD at 09/22/2018 10:59 AM Report E-Signed By: Thalia Myers MD at 09/22/2018 11:00 AM WSN:[email or web address]
[2018-09-22] MEDS ORDERED: MAGNESIUM SUL/D5W* 1 GM/100 ML 100 ML IVPB ONE (12:00)
[2018-09-22 12:31] VITALS: BP 119/73
[2018-09-22] MEDS ORDERED: NS(*) 0.9% 1000 ML BAG 1,000 ML IV PRN (12:46)
[2018-09-22] MEDS ORDERED: hydrOXYzine 25 MG TAB PO PRN (12:50)
--- NOTE | 2018-09-22 12:59 | History & Physical ---
History of Present Illness Chief Complaint Short of breath History of Present Illness 58yo female with PMHx significant for asthma/COPD, hepatitis C s/p antiviral treatment "a few years ago" with clearing, positive PPD ~12-13 years ago without INH prophylaxis. She reports increasing cough/sputum/wheezing/dyspnea over past 4-5 days. She has had head congestion with large amounts of sinus drainage. Her cough has been intermittently productive of "yellow" sputum. She denies any hemoptysis. She has had "chilled" sensations, but has not appreciated any fever/night sweats. No GI//neurologic symptoms. No skin changes. No weight loss. She was evaluated in the ER and found to be hypoxic, tachypneic, wheezing. CXR shows RML "scarring". She was recommended for admission. History Problems: (1) History of positive PPD, untreated Status: Chronic (2) GERD (gastroesophageal reflux disease) Status: Chronic (3) Hepatitis C Status: Chronic Comment: Treated with reported clearing of virus (4) Fracture, ankle Status: Resolved (5) COPD (chronic obstructive pulmonary disease) Status: Chronic (6) Drug abuse Status: Resolved Home Meds Reported Medications Cetirizine Hcl (ZYRTEC) 10 Mg Tablet, 10 MG PO QDAY, TAB 05/05/18 Tramadol Hcl (TRAMADOL HCL) 50 Mg Tablet, 50 MG PO BID, TAB 03/08/18 Fluticasone/Salmeterol (ADVAIR 500-50 DISKUS) 1 Each Disk.w.dev, 1 EACH IH QDAY 03/08/18 Hydroxyzine Hcl (HYDROXYZINE HCL) 50 Mg Tablet, 50 MG PO PRN PRN for ANXIETY 03/08/18 Trazodone Hcl (TRAZODONE HCL) 50 Mg Tablet, 50 MG PO QHS PRN for prn 03/08/18 Omeprazole (OMEPRAZOLE) 20 Mg Tablet.dr, 20 MG PO PRN, TAB 12/31/17 Paroxetine Hcl (PAXIL) 20 Mg Tablet, 20 MG PO QDAY, TAB 12/31/17 Albuterol Sulfate (Albuterol Sulfate Hfa) 8.5 Gm Hfa.aer.ad, 8.5 GM IH, 0 Refills TAKE ONE TO TWO PUFFS FOUR TIMES DAILY NEEDED FOR SHORTNESS OF BREATH 08/13/11 Allergies: Coded Allergies: No Known Drug Allergies (Verified , 04/10/14) Patient History: FH: diabetes mellitus FATHER FH: eye disease MOTHER FH: heart disease FATHER High blood pressure FATHER MOTHER Other Social/Family Hx . Previously incarcerated. She has two grown children. Hx Smoking: Yes Smoking Status: Former Smoker Caffeine Intake: Coffee, Tea, Soda Caffeine/Cups Per Day: 4 cpd Hx Alcohol Use: Yes (RARE) Hx Substance Use Disorder: No (IV METH UNTIL 2007) Social Drug Use: Former Social Drugs: Meth History of IV Drug Use: Yes Review of Systems Constitutional: Chills; No Fever, No Night Sweats Neurological: No Confusion, No Weakness Eyes: No Vision Change ENT: Sinus Congestion, Sore Throat; No Hearing Loss Cardiovascular: No Chest Pain Respiratory: Shortness of Breath, Cough, Wheezing Gastrointestinal: No Nausea, No Vomiting, No Diarrhea, No Constipation, No Hematemesis, No Hematochezia, No Melena, No Abdominal Pain Genitourinary: No Dysuria Musculoskeletal: Pain (ankle) Psychiatric: Depression, Anxiety Exam Vital Signs Vital Signs Date Time Temp Pulse Resp B/P (MAP) Pulse Ox O2 Delivery O2 Flow Rate FiO2 09/22/18 12:31 97.7 92 32 119/73 (88) 97 Oxy Mask 5.0 General Appearance: Alert, Awake Neuro: No Gross deficits Eyes: PERRLA ENT: Oropharynx Clear Neck: No Masses Cardiovascular: Regular Rate and Rhythm, No Edema, No JVD Respiratory: Other (diffuse wheezing throughout all lung [place]) Chest: No Tenderness GI: Abd Soft and Non-Tender : No CVA Tenderness Musculoskeletal: Other (healed surgical scar right ankle) Extremities: Warm, Perfused Integumentary: Skin Intact without Lesion / Mass Psych: Alert & Oriented X3 Medical Decision Making Data Points Result Diagram: 09/22/18 1030 09/22/18 1109 Item Value Date Time Albumin 4.3 g/dl 09/22/18 1109 Total Protein 7.7 g/dl 09/22/18 1109 Alkaline Phosphatase 75 U/L 09/22/18 1109 Alanine Aminotransferase (ALT/SGPT) 39 U/L 09/22/18 1109 Aspartate Amino Transf (AST/SGOT) 34 U/L 09/22/18 1109 Total Bilirubin 0.6 mg/dl 09/22/18 1109 Calcium Level 9.1 mg/dl 09/22/18 1109 Influenza Virus Type B (PCR) Negative 09/22/18 1100 Influenza Virus Type A (PCR) Negative 09/22/18 1100 EKG / Imaging EKG Interpretation PATIENT NAME: CONY PIERRE DOB: [id number] MR: [id number] V: [id number] EXAM DATE: ORDERING PHYSICIAN: ALVIN LAST TECHNOLOGIST: Test Reason : SOB Blood Pressure : / mmHG Vent. Rate : 100 BPM Atrial Rate : 100 BPM P-R Int : 146 ms QRS Dur : 076 ms QT Int : 382 ms P-R-T Axes : 066 072 069 degrees QTc Int : 492 ms Normal sinus rhythm Nonspecific ST abnormality Prolonged QT Abnormal ECG When compared with ECG of 10-MAR-2018 10:32, Vent. rate has increased BY 36 BPM Referred By: Confirmed By: Imaging PATIENT NAME: Cony Pierre : 1960 MR: [id number] V: [id number] EXAM DATE: ORDERING PHYSICIAN: ALVIN LAST TECHNOLOGIST: Location: [facility] Patient: Cony Pierre : 1960 Visit/Account:[id number] Date of Sevice: 09/22/2018 Exam type: CHEST SINGLE AP History: Not feeling well for 5 to 6 days, shortness of breath, cough, COPD, asthma Comparison: November 10, 2017. Findings: There is a small amount scarring in the right middle lobe. No evidence of acute pulmonary consolidation or pleural effusions. The cardiac silhouette appears normal. The trachea is in midline. IMPRESSION: 1. Small amount of scarring in the right middle lobe remains stable. No evidence of acute pulmonary consolidation Report Dictated By: Thalia Myers MD at 09/22/2018 10:59 AM Report E-Signed By: Thalia Myers MD at 09/22/2018 11:00 AM WSN:FCO Assessment and Plan Problems: (1) COPD exacerbation Status: Acute Assessment & Plan: She has significant airway reactivity and hypoxia. Will admit for IV antibiotics, respiratory treatments, oxygen supplementation. Will place on a short burst of steroids as well. Watch closely. (2) History of positive PPD, untreated Status: Chronic Assessment & Plan: She is certain she did not receive prophylaxis when she had her positive test. I am not sure why she would not have had it. At this point, she has an abnormal CXR with RML scarring. Will place in respiratory isolation. Check AFB smear and cultures x3. Will DC isolation if smears are negative. She will need to have prophylaxis if negative. (3) Hepatitis C Status: Chronic Assessment & Plan: She has been treated with reported resolution. Will watch labs. (4) GERD (gastroesophageal reflux disease) Status: Chronic Assessment & Plan: Continue PPI therapy. Copies to: KENDRA CARBONE ; Venous Thromboembolism Antithrombotics Is Pt On Any Antithrombotics?: Yes Exam Sepsis Risk: Possible Sepsis Risk LUZ VILLALOBOS MD Sep 22, 2018 12:59
[2018-09-22] MEDS: ALBUTEROL/IPRATROPIUM 3 ML NEB NEB SCH ×2 (13:17→18:18)
[2018-09-22] MEDS ORDERED: cefTRIAXone 1 GM VIAL IVP SCH (14:00)
[2018-09-22 14:46] VITALS: BP 138/66
[2018-09-22] MEDS: ALBUTEROL 2.5 MG/3 ML NEB NEB PRN (15:19)
[2018-09-22] MEDS: methylPREDNIS SUCC 125 MG/2ML IVP SCH (17:44)
[2018-09-22 19:44] VITALS: BP 121/76
[2018-09-22] MEDS: traZODone HCL 50 MG TAB PO PRN (21:11)
[2018-09-22] MEDS: DOXYCYCLINE HYCL 100 MG TAB PO SCH (21:11)
[2018-09-22] MEDS: traMADol 50 MG TAB PO PRN (21:11)
[2018-09-23] MEDS: methylPREDNIS SUCC 125 MG/2ML IVP SCH (01:25)
[2018-09-23 01:26] VITALS: BP 132/79
[2018-09-23] MEDS: ALBUTEROL/IPRATROPIUM 3 ML NEB NEB SCH ×4 (06:12→16:51)
[2018-09-23 07:28] VITALS: BP 145/74
[2018-09-23] MEDS: PANTOPRAZOLE SOD 40 MG TABEC PO SCH (07:59)
[2018-09-23] MEDS: ACETAMINOPHEN 325 MG TAB PO PRN ×3 (08:00→23:37)
[2018-09-23] MEDS: CEFDINIR 300 MG CAP PO SCH ×2 (09:46→21:22)
[2018-09-23] MEDS: ENOXAPARIN 40 MG/0.4ML SYR SC SCH (09:46)
[2018-09-23] MEDS: DOXYCYCLINE HYCL 100 MG TAB PO SCH ×2 (09:46→21:22)
[2018-09-23] MEDS: predniSONE 20 MG TAB PO SCH (09:46)
[2018-09-23] MEDS: PARoxetine HCL 20 MG TAB PO SCH (09:46)
[2018-09-23] MEDS: CETIRIZINE HCL 10 MG TAB PO SCH (09:47)
--- NOTE | 2018-09-23 10:30 | Hospitalist Progress Note ---
Subjective Progress Notes Subjective This patient was admitted for asthma. She had no acute events overnight. Patient Complains of: Cardiovascular: No: Chest Pain Respiratory: No: Shortness of Breath Physical Exam Vital Signs Date Time Temp Pulse Resp B/P (MAP) Pulse Ox O2 Delivery O2 Flow Rate FiO2 09/23/18 09:28 94 Nasal Cannula 3.5 09/23/18 09:28 107 18 09/23/18 07:28 98.9 145/74 (97) Intake and Output 09/23/18 06:59 Intake Total 1710 ml Balance 1710 ml Intake Oral 1400 ml IV Total 310 ml # Voids 5 Cardiovascular: Regular Rate and Rhythm Respiratory: Clear to Auscultation Result Diagram: 09/22/18 1030 09/22/18 1109 Assessment and Plan Problems: (1) COPD exacerbation Status: Acute Assessment & Plan: She was started on initial treatment with IV steroids, nebulizers, and ceftriaxone. Her breathing is significantly improved today. We have converted her to oral steroids and antibiotics. She still requires oxygen, but may require home oxygen therapy. (2) History of positive PPD, untreated Status: Chronic Assessment & Plan: She is certain she did not receive prophylaxis when she had her positive test. She has an abnormal CXR with RML scarring. She has been placed on isolation. Acid fast cultures and interferon TB testing are pending. (3) Hepatitis C Status: Chronic Assessment & Plan: She has been treated with reported resolution. Her liver enzymes are normal. (4) GERD (gastroesophageal reflux disease) Status: Chronic Assessment & Plan: Continue PPI therapy. Exam Sepsis Risk: No Definite Risk BENSON BARRERA DO Sep 23, 2018 10:30
[2018-09-23 11:07] VITALS: BP 128/72
[2018-09-23 12:34] VITALS: Ht 162.6 cm; Wt 81.6 kg
[2018-09-23 14:44] VITALS: BP 128/69
[2018-09-23] MEDS ORDERED: ADV230RPT INH (14:51)
[2018-09-23] MEDS ORDERED: TIO18R INH (14:51)
[2018-09-23] MEDS: RANITIDINE HCL 150 MG TAB PO SCH (15:47)
[2018-09-23 19:49] VITALS: BP 120/74
[2018-09-23] MEDS: traMADol 50 MG TAB PO PRN (21:22)
[2018-09-23] MEDS: traZODone HCL 50 MG TAB PO PRN (21:22)
[2018-09-23] MEDS: CALCIUM CARBONATE 500 MG CHEW PO PRN ×2 (22:15→22:39)
[2018-09-23] MEDS: ALBUTEROL 2.5 MG/3 ML NEB NEB PRN (23:14)
[2018-09-24] MEDS: ALBUTEROL/IPRATROPIUM 3 ML NEB NEB SCH ×4 (06:00→16:44)
[2018-09-24 07:39] VITALS: BP 144/75
[2018-09-24] MEDS ORDERED: BISACODYL 10 MG SUPP PR PRN (08:25)
[2018-09-24] MEDS ORDERED: MAGNESIUM HYDROXIDE* 30ML UDCP PO PRN (08:25)
[2018-09-24] MEDS: POLYETHYLENE GLYCOL 17 GM PKT PO SCH (09:00)
[2018-09-24] MEDS: DOCUSATE SODIUM 100 MG CAP PO SCH ×2 (09:53→20:33)
[2018-09-24] MEDS: ENOXAPARIN 40 MG/0.4ML SYR SC SCH (09:53)
[2018-09-24] MEDS: CETIRIZINE HCL 10 MG TAB PO SCH (09:54)
[2018-09-24] MEDS: PANTOPRAZOLE SOD 40 MG TABEC PO SCH (09:54)
[2018-09-24] MEDS: predniSONE 20 MG TAB PO SCH (09:54)
[2018-09-24] MEDS: PARoxetine HCL 20 MG TAB PO SCH (09:54)
[2018-09-24] MEDS: RANITIDINE HCL 150 MG TAB PO SCH ×2 (09:54→20:33)
[2018-09-24] MEDS: DOXYCYCLINE HYCL 100 MG TAB PO SCH ×2 (09:54→20:32)
[2018-09-24] MEDS: CEFDINIR 300 MG CAP PO SCH ×2 (09:54→20:33)
[2018-09-24] MEDS: BENZONATATE 100 MG CAP PO PRN ×2 (10:07→20:33)
--- NOTE | 2018-09-24 10:23 | Hospitalist Progress Note ---
Subjective Progress Notes Subjective Overall improving and less SOB. Still requiring O2. Physical Exam Vital Signs Date Time Temp Pulse Resp B/P (MAP) Pulse Ox O2 Delivery O2 Flow Rate FiO2 09/24/18 09:59 Nasal Cannula 1.5 09/24/18 09:59 85 09/24/18 09:21 95 18 09/24/18 07:39 98.7 144/75 (98) Intake and Output 09/24/18 07:00 Intake Total 3220 ml Balance 3220 ml Intake Oral 3220 ml # Voids 1 General Appearance: Alert, Awake, Other (Mild wob) Cardiovascular: Regular Rate and Rhythm Respiratory: Clear to Auscultation Result Diagram: 09/22/18 1030 09/22/18 1109 Assessment and Plan Problems: (1) COPD exacerbation Status: Acute Assessment & Plan: She was started on initial treatment with IV steroids, nebulizers, and ceftriaxone. Her breathing is significantly improved today. We have converted her to oral steroids and antibiotics. She is still hypoxic. However, she was told a couple months ago that she needed chronic O2, but couldn't afford it. (2) History of positive PPD, untreated Status: Chronic Assessment & Plan: She is certain she did not receive prophylaxis when she had her positive test. She has an abnormal CXR with RML scarring. She has been placed on isolation. Acid fast cultures and interferon TB testing are pending. (3) Hepatitis C Status: Chronic Assessment & Plan: She has been treated with reported resolution. Her liver enzymes are normal. (4) GERD (gastroesophageal reflux disease) Status: Chronic Assessment & Plan: Continue PPI therapy. Exam Sepsis Risk: No Definite Risk TATIANNA SEYMOUR MD Sep 24, 2018 10:23
--- NOTE | 2018-09-24 11:21 | Antimicrobial Stewardship ---
Antimicrobial Stewardship Empiricly appropriate: Yes Comment Started on Ceftriaxone Iv for COPD exacerbation and now on Cefdinir and Doxycycline po. Approriate Cultures done: Yes (No growth.) Reviewed for Drug Interaction: Yes Monitored for Toxicities: Yes Clinically stable/improving: Yes Comment Showed significant improvement after 1 dose of Ceftriaxone and was switched to po antibiotics. Patient was told a few months ago that she needs home oxygen but cannot afford it. IV to PO Opportunity: Yes Determine cumulative duration: 5-10 days MARIUM COELLO Sep 24, 2018 11:21
[2018-09-24] MEDS: guaiFENesin 600 MG TABCR PO SCH ×2 (15:29→20:33)
[2018-09-24 15:30] VITALS: BP 128/61
[2018-09-24 19:28] VITALS: BP 115/76
[2018-09-24] MEDS: traMADol 50 MG TAB PO PRN (20:32)
[2018-09-24] MEDS: traZODone HCL 50 MG TAB PO PRN (20:33)
[2018-09-25 06:29] LABS: PLATELET COUNT, AUTOMATED 253 K/uL (150-450)
[2018-09-25] MEDS: ALBUTEROL/IPRATROPIUM 3 ML NEB NEB SCH ×4 (06:35→16:44)
[2018-09-25] MEDS: BENZONATATE 100 MG CAP PO PRN ×2 (06:45→16:09)
[2018-09-25] MEDS ORDERED: INFLUENZA VIRUS VAC 0.5ML SYR IM ONLY ONE (09:00)
[2018-09-25] MEDS: CETIRIZINE HCL 10 MG TAB PO SCH (09:03)
[2018-09-25] MEDS: POLYETHYLENE GLYCOL 17 GM PKT PO SCH (09:03)
[2018-09-25] MEDS: guaiFENesin 600 MG TABCR PO SCH ×2 (09:03→21:03)
[2018-09-25] MEDS: predniSONE 20 MG TAB PO SCH (09:03)
[2018-09-25] MEDS: PARoxetine HCL 20 MG TAB PO SCH (09:03)
[2018-09-25] MEDS: traMADol 50 MG TAB PO PRN ×2 (09:03→21:03)
[2018-09-25] MEDS: DOCUSATE SODIUM 100 MG CAP PO SCH ×2 (09:03→21:03)
[2018-09-25] MEDS: DOXYCYCLINE HYCL 100 MG TAB PO SCH ×2 (09:04→21:03)
[2018-09-25] MEDS: PANTOPRAZOLE SOD 40 MG TABEC PO SCH (09:04)
[2018-09-25] MEDS: RANITIDINE HCL 150 MG TAB PO SCH ×2 (09:04→21:03)
[2018-09-25] MEDS: CEFDINIR 300 MG CAP PO SCH ×2 (09:04→21:03)
[2018-09-25] MEDS: ENOXAPARIN 40 MG/0.4ML SYR SC SCH (09:06)
[2018-09-25 09:08] VITALS: BP 133/74
--- NOTE | 2018-09-25 13:31 | Hospitalist Progress Note ---
Subjective Progress Notes Subjective 88F admitted for SOB. L[place] overnight, felling better awaiting result of quantiferon and arranging outpatient O2. Patient Complains of: Respiratory: Cough Gastrointestinal: No Nausea, No Vomiting Physical Exam Vital Signs Date Time Temp Pulse Resp B/P (MAP) Pulse Ox O2 Delivery O2 Flow Rate FiO2 09/25/18 13:21 89 16 09/25/18 13:15 92 Nasal Cannula 2.0 09/25/18 09:08 97.5 133/74 (93) Intake and Output 09/25/18 07:00 Intake Total 2436 ml Balance 2436 ml Intake Oral 2436 ml # Voids 5 # Bowel Movements 2 General Appearance: Alert, Awake, No Acute Distress, Afebrile Neuro: No Gross deficits ENT: Normal Cardiovascular: Normal Rhythm & Peripheral Pulses Respiratory: No Respiratory Distress (end expiratory wheezing.) GI: Soft and Non-Tender Musculoskeletal: No Weakness/Pain Extremities: Soft and Non Tender, Warm, Pulses, Perfused; No Edema Integumentary: Skin Intact without Lesion / Mass Result Diagram: 09/25/1861809/25/18618 Assessment and Plan Problems: (1) COPD exacerbation Status: Acute Assessment & Plan: She was started on initial treatment with IV steroids, nebulizers, and ceftriaxone. Her breathing is significantly improved today. We have converted her to oral steroids and antibiotics. She is still hypoxic. However, she was told a couple months ago that she needed chronic O2, but couldn't afford it. (2) History of positive PPD, untreated Status: Chronic Assessment & Plan: She is certain she did not receive prophylaxis when she had her positive test. She has an abnormal CXR with RML scarring. She has been placed on isolation. Acid fast cultures and interferon TB testing are pending. (3) Hepatitis C Status: Chronic Assessment & Plan: She has been treated with reported resolution. Her liver enzymes are normal. (4) GERD (gastroesophageal reflux disease) Status: Chronic Assessment & Plan: Continue PPI therapy. Exam Sepsis Risk: No Definite Risk GILL JAYDEN STEELE DO Sep 25, 2018 13:30
[2018-09-25 16:11] VITALS: BP 135/83
[2018-09-25] MEDS: traZODone HCL 50 MG TAB PO PRN (21:03)
[2018-09-25] MEDS: CALCIUM CARBONATE 500 MG CHEW PO PRN (23:14)
[2018-09-25 23:15] VITALS: BP 141/83
[2018-09-26] MEDS: ALBUTEROL/IPRATROPIUM 3 ML NEB NEB SCH ×3 (06:01→13:06)
[2018-09-26 08:12] VITALS: BP 138/78
[2018-09-26] MEDS: ACETAMINOPHEN 325 MG TAB PO PRN (08:36)
[2018-09-26] MEDS: BENZONATATE 100 MG CAP PO PRN (08:37)
[2018-09-26] MEDS: CETIRIZINE HCL 10 MG TAB PO SCH (09:22)
[2018-09-26] MEDS: guaiFENesin 600 MG TABCR PO SCH (09:22)
[2018-09-26] MEDS: DOCUSATE SODIUM 100 MG CAP PO SCH (09:22)
[2018-09-26] MEDS: traMADol 50 MG TAB PO PRN (09:22)
[2018-09-26] MEDS: RANITIDINE HCL 150 MG TAB PO SCH (09:22)
[2018-09-26] MEDS: predniSONE 20 MG TAB PO SCH (09:23)
[2018-09-26] MEDS: CEFDINIR 300 MG CAP PO SCH (09:23)
[2018-09-26] MEDS: PARoxetine HCL 20 MG TAB PO SCH (09:23)
[2018-09-26] MEDS: DOXYCYCLINE HYCL 100 MG TAB PO SCH (09:24)
[2018-09-26] MEDS: PANTOPRAZOLE SOD 40 MG TABEC PO SCH (09:24)
[2018-09-26] MEDS: POLYETHYLENE GLYCOL 17 GM PKT PO SCH (09:25)
[2018-09-26] MEDS: ENOXAPARIN 40 MG/0.4ML SYR SC SCH (09:25)
[2018-09-26] MEDS ORDERED: PROMETH/COD SYRP 6.25-10MG/5ML PO PRN (10:45)
[2018-09-26] MEDS ORDERED: SALMETEROL/FLUTIC 250/50 1 INH INH SCH (12:00)
[2018-09-26] MEDS ORDERED: TIOTROPIUM BROM INH 18 MCG/CAP INH ONE (12:05)
[2018-09-26] MEDS ORDERED: DOXYCYCLINE HYCL 100 MG TAB PO ONE ×2 (12:05→14:40)
[2018-09-26] MEDS ORDERED: CEFDINIR 300 MG CAP PO ONE ×2 (12:05→14:40)
[2018-09-26] MEDS ORDERED: DOXY-181 PO (12:14)
[2018-09-26] MEDS ORDERED: CEF300 PO (12:14)
--- NOTE | 2018-09-26 12:22 | Hospitalist Depart ---
Discharge Summary Reason for Hosp/Final Diag: (1) COPD exacerbation Status: Acute Hospital Course & Plan: She was started on initial treatment with IV steroids, nebulizers, and ceftriaxone. Her breathing is significantly improved today. She was converted to oral steroids and antibiotics. She is still hypoxic and will require 3L at all times. However, she was told a couple months ago that she needed chronic O2, but couldn't afford it. She will get assistance from [facility] for in home concentrator cost. She will get antibiotics filled at [facility] tomorrow, she will receive two doses today for tonight and the morning dose, since her pharmacy is closed today. (2) History of positive PPD, untreated Status: Chronic Hospital Course & Plan: She is certain she did not receive prophylaxis when she had her positive test. She has an abnormal CXR with RML scarring. She has been placed on isolation. Acid fast stain is negative and cultures and interferon TB testing are pending. She will follow up with [facility] for follow up cultures, as they could take up to 60 days. (3) Hepatitis C Status: Chronic Hospital Course & Plan: She has been treated with reported resolution. Her liver enzymes are normal. (4) GERD (gastroesophageal reflux disease) Status: Chronic Hospital Course & Plan: Continue PPI therapy. Departure Latest Vital Signs Vital Signs 09/26/18 09/26/18 09/26/18 09/26/18 08:12 08:54 09:00 09:59 Temp 99.0 Pulse 95 Resp 18 B/P (MAP) 138/78 (98) Pulse Ox 82 O2 Delivery Nasal Cannula O2 Flow Rate 2.0 Weight (Pounds): 180 Result Diagram: 09/25/1861809/25/18618 Condition: Improved Discharge: Home, Self Care Discharge Instructions Home Meds Active Scripts Doxycycline Hyclate (DOXYCYCLINE HYCLATE) 100 Mg Capsule, 100 MG PO BID for 5 Days, #10 CAPSULE Prov:VALENTE KEARNS [facility] 09/26/18 Cefdinir 300 Mg Cap (OMNICEF 300 MG CAP (OR EQUIV)) 300 Mg Cap, 300 MG PO BID for 5 Days, #10 CAP Prov:VALENTE KEARNS [facility] 09/26/18 Reported Medications Fluticasone/Salmeterol (ADVAIR HFA 230-21 MCG INHALER) 1 Inh Inh, 2 INH INH BID, INH 09/23/18 Tiotropium [place] (SPIRIVA) 18 Mcg/Cap Inh, 18 MCG INH QDAY, INH 09/23/18 Cetirizine Hcl (ZYRTEC) 10 Mg Tablet, 10 MG PO QDAY, TAB 05/05/18 Tramadol Hcl (TRAMADOL HCL) 50 Mg Tablet, 50 MG PO BID, TAB 03/08/18 Trazodone Hcl (TRAZODONE HCL) 50 Mg Tablet, 50-100 MG PO QHS PRN for prn 03/08/18 Omeprazole (OMEPRAZOLE) 20 Mg Tablet.dr, 20-40 MG PO PRN, TAB 12/31/17 Paroxetine Hcl (PAXIL) 20 Mg Tablet, 30 MG PO QDAY, TAB 12/31/17 Albuterol Sulfate (Albuterol Sulfate Hfa) 8.5 Gm Hfa.aer.ad, 8.5 GM IH, 0 Refills TAKE ONE TO TWO PUFFS FOUR TIMES DAILY NEEDED FOR SHORTNESS OF BREATH 08/13/11 Discontinued Reported Medications Fluticasone/Salmeterol (ADVAIR 500-50 DISKUS) 1 Each Disk.w.dev, 1 EACH IH QDAY 03/08/18 Hydroxyzine Hcl (HYDROXYZINE HCL) 50 Mg Tablet, 50 MG PO PRN PRN for ANXIETY 03/08/18 Diet: Regular Activity: As Tolerated Special Instructions: Follow up with [facility] for medications tomorrow and follow up appointment within one week. Use 3L of oxygen at all times. Take antibiotics as prescribed until all gone. Copies to: [facility] ; Venous Thromboembolism Antithrombotics Is Pt On Any Antithrombotics?: Yes VALENTE KEARNS Sep 26, 2018 12:22
[2018-09-26] MEDS ORDERED: CEFDINIR 300 MG CAP PO SCH ×2 (14:48)
[2018-09-26] MEDS ORDERED: DOXYCYCLINE HYCL 100 MG TAB PO SCH ×2 (14:49)
== END 2018-09-26 15:32 | disposition home or self-care (01) | DRG 191 ==
LOC: ER 10:15 → MED 12:09
PROVIDERS: ADMIT Internal Medicine; ATTEND Internal Medicine
DX: J44.1 Chronic obstructive pulmonary disease with (acute) exacerbation (principal); J45.51 Severe persistent asthma with (acute) exacerbation; R09.02 Hypoxemia; K21.9 Gastro-esophageal reflux disease without esophagitis; M81.0 Age-related osteoporosis without current pathological fracture; R76.11 Nonspecific reaction to tuberculin skin test without active tuberculosis; Z87.891 Personal history of nicotine dependence; Z86.19 Personal history of other infectious and parasitic diseases; Z85.828 Personal history of other malignant neoplasm of skin
CPT/HCPCS: 36415; 71045; 82040; 82247; 82310; 82374; 82435; 82565; 82947; 84075; 84132; 84155; 84295; 84450; 84460; 84520; 85025; 86480; 87015; 87040; 87116; 87502; 93005; 94640; 94667; 94668; 96374; 96375; 99285; J0696; J1650; J2930; J3475; J3535; J7030; J7512; J7611; J7613; J7644